=== PATIENT | female | born 1995 | race Caucasian/White ===

== ENCOUNTER 2017-10-27 16:20 | Outpatient (CLI) | payer OTHER ==
[~2017-10-27 16:20] MED LIST: CEFDINIR300 MG PO; MEDROXYPRO150 MG/1 M IM; MOTRIN800 MG PO
[2017-10-27 16:49] VITALS: BP 128/75
[2017-10-27 17:20] VITALS: BP 128/73
[2017-10-27 17:31] LABS: BASOPHIL (%) 0.2 % (0-1); EOSINOPHIL (%) 0.4 % (0-5); HEMATOCRIT 32.6 % (36.0-46.0); HEMOGLOBIN 11.1 G/DL (11.9-15.5); IMMATURE GRANULOCYTE (%) 0.4 % (0.0-0.7); LYMPHOCYTE (%) 28.6 % (15-42); LYMPHOCYTE COUNT 2.7 K/uL (1.0-2.8); MCH 31.5 PG (29.0-34.0); MCV 92.6 FL (83-99); MONOCYTE (%) 5.8 % (3-12); MONOCYTE COUNT 0.5 K/uL (0-0.8); NEUTROPHIL (%) 64.6 % (45-76); PLATELET COUNT 191 K/uL (156-360); RBC DIS.WIDTH-CV 12.7 % (11.8-14.6); RED BLOOD COUNT 3.52 M/uL (3.80-5.20); WHITE BLOOD COUNT 9.3 K/uL (4.1-10.2)
[2017-10-27 17:41] LABS: ALBUMIN 3.6 g/dL (3.2-4.8); CHLORIDE 107 mEq/L (99-109); POTASSIUM 3.7 mEq/L (3.7-5.4); SODIUM 137 mEq/L (136-147)
[2017-10-27 17:44] LABS: GLUCOSE 73 mg/dL (70-99); TOTAL PROTEIN 6.3 g/dL (6.4-8.3)
[2017-10-27 17:45] LABS: TOTAL BILIRUBIN 0.3 mg/dL (0.0-1.0)
[2017-10-27 17:47] LABS: ALKALINE PHOSPHATASE 132 IU/L (3-129); CREATININE 0.7 mg/dL (0.6-1.3); GFR ESTIMATE (CALCULATED) > 59 mL/min/
[2017-10-27 17:48] LABS: UREA NITROGEN (BUN) 8 mg/dL (9-23)
[2017-10-27 17:49] LABS: AST (GOT) 12 IU/L (2-34)
[2017-10-27 17:50] VITALS: BP 134/81
[2017-10-27 17:50] LABS: ALT (GPT) 8 IU/L (3-49)
[2017-10-27 18:19] VITALS: BP 122/76
== END 2017-10-27 18:45 | disposition home or self-care (01) ==
LOC: LDRP-OP 16:20 → 2WEST 16:21 → LDRP-OP 12-10 10:15
PROVIDERS: Nurse Practitioner
DX: O26.893 Other specified pregnancy related conditions, third trimester (principal); R03.0 Elevated blood-pressure reading, without diagnosis of hypertension; O99.820 Streptococcus B carrier state complicating pregnancy; Z3A.38 38 weeks gestation of pregnancy
CPT/HCPCS: 59025; 80053; 82570; 84156; 85025; G0378

== ENCOUNTER 2017-11-02 07:35 | Inpatient (IN) | payer OTHER ==
[2017-11-02] VITALS (22 sets, daily range): BP systolic 124–149; BP diastolic 69–94
[~2017-11-02] VITALS: Ht 157.5 cm; Wt 72.5 kg
[2017-11-02 09:10] LABS: BASOPHIL (%) 0.2 % (0-1); EOSINOPHIL (%) 0.6 % (0-5); EOSINOPHIL COUNT 0.1 K/uL (0-0.3); HEMATOCRIT 34.9 % (36.0-46.0); HEMOGLOBIN 11.5 G/DL (11.9-15.5); IMMATURE GRANULOCYTE (%) 0.4 % (0.0-0.7); LYMPHOCYTE (%) 30.1 % (15-42); LYMPHOCYTE COUNT 2.4 K/uL (1.0-2.8); MCH 30.9 PG (29.0-34.0); MCV 93.8 FL (83-99); MONOCYTE (%) 7.2 % (3-12); MONOCYTE COUNT 0.6 K/uL (0-0.8); NEUTROPHIL (%) 61.5 % (45-76); NEUTROPHIL COUNT 4.9 K/uL (1.8-6.4); PLATELET COUNT 216 K/uL (156-360); RBC DIS.WIDTH-CV 12.6 % (11.8-14.6); RBC DIS.WIDTH-SD 43.5 % (39-53); RED BLOOD COUNT 3.72 M/uL (3.80-5.20)
[2017-11-02 10:14] LABS: AMPHETAMINE NEGATIVE (500 ng/mL); BARBITURATES NEGATIVE (200 ng/mL); BENZODIAZEPINES NEGATIVE (150 ng/mL); BUPRENORPHINE NEGATIVE (10 ng/mL); COCAINE NEGATIVE (150 ng/mL); METHADONE NEGATIVE (200 ng/mL); METHAMPHETAMINE NEGATIVE (500 ng/mL); OPIATES (MORPHINE) NEGATIVE (100 ng/mL); OXYCODONE NEGATIVE (100 ng/mL); PHENCYCLIDINE NEGATIVE (25 ng/mL); PROPOXYPHENE NEGATIVE (300 ng/mL); THC CANNABINOIDS NEGATIVE (50 ng/mL); TRICYCLIC ANTIDEPRESSANTS NEGATIVE (300 ng/mL)
[2017-11-02 11:02] LABS: TREPONEMA ANTIBODY NEGATIVE (NEGATIVE)
[2017-11-02] MEDS ORDERED: PRENATAL TABLE1 EAC3 PO (14:53)
[2017-11-02] MEDS ORDERED: IBUPROFEN800 MG PO (20:49)
[2017-11-03 03:25] VITALS: BP 130/78
[2017-11-03 07:55] VITALS: BP 128/80
[2017-11-03 12:00] VITALS: BP 126/69
[2017-11-03 16:08] VITALS: BP 132/76
[2017-11-04 07:21] VITALS: BP 148/99
[2017-11-04] MEDS ORDERED: IBUPROFEN800 MG PO (13:05)
== END 2017-11-04 13:20 | disposition home or self-care (01) | DRG 775 ==
LOC: LDRP-OP 07:35 → 2WEST 07:36 → LDRP-OP 12-10 19:29
PROVIDERS: Advanced Practice Midwife
PROC: 10E0XZZ Delivery of Products of Conception, External Approach (ICD-10-PCS; principal; 2017-11-02)
PROC: 00HU33Z Insertion of Infusion Device into Spinal Canal, Percutaneous Approach (ICD-10-PCS; principal; 2017-11-02)
PROC: 3E0R3BZ Introduction of Anesthetic Agent into Spinal Canal, Percutaneous Approach (ICD-10-PCS; principal; 2017-11-02)
PROC: 10907ZC Drainage of Amniotic Fluid, Therapeutic from Products of Conception, Via Natural or Artificial Opening (ICD-10-PCS; principal; 2017-11-02)
PROC: 3E033VJ Introduction of Other Hormone into Peripheral Vein, Percutaneous Approach (ICD-10-PCS; principal; 2017-11-02)
DX: O13.4 Gestational [pregnancy-induced] hypertension without significant proteinuria, complicating childbirth (principal); O99.824 Streptococcus B carrier state complicating childbirth; O69.81X0 Labor and delivery complicated by cord around neck, without compression, not applicable or unspecified; Z3A.39 39 weeks gestation of pregnancy; Z37.0 Single live birth; Z87.440 Personal history of urinary (tract) infections
CPT/HCPCS: 85025; 86780; C1755; J2405; J2540; J3010; J7120